=== PATIENT | male | born 1965 ===

== ENCOUNTER 2017-12-12 02:32 | Emergency (ER) | payer SELFPAY ==
[2017-12-12 02:55] VITALS: RESP 20; O2SAT 99
--- NOTE | 2017-12-12 03:05 | C.PDOC ---
History Of Present Illness 52 year old male presents to the ER via EMS for public intoxication. Patient denies any physical complaints at this time. Time Seen by Provider: 12/12/17 03:04 Chief Complaint (Nursing): Substance Abuse History Per: Patient History/Exam Limitations: no limitations Onset/Duration Of Symptoms: Hrs Current Symptoms Are (Timing): Still Present Suicide/Self Injury Attempted (Context): None Modifying Factor(s): Alcohol Involuntary Hold By: None Recent travel outside of the [place]: No Past Medical History Reviewed: Historical Data, Nursing Documentation, Vital Signs Vital Signs: Last Vital Signs Temp 98.8 F 12/12/17 02:38 Pulse 84 12/12/17 02:38 Resp 20 12/12/17 02:38 BP 176/99 H 12/12/17 02:38 Pulse Ox 99 12/12/17 06:09 Family History: States: Unknown Family Hx - Social History Hx Alcohol Use: Yes Hx Substance Use: No Review Of Systems Constitutional: Negative for: Fever, Chills Gastrointestinal: Negative for: Nausea, Vomiting, Abdominal Pain Psych: Negative for: Depression, Suicidal ideation Physical Exam - Physical Exam Appears: Non-toxic, Other (ETOH on breath, no sign of injury) Skin: Normal Color, Warm, Dry Head: Atraumatic, Normacephalic Eye(s): bilateral: Normal Inspection Oral Mucosa: Moist Chest: Symmetrical, No Tenderness Cardiovascular: Rhythm Regular Respiratory: Normal Breath Sounds, No Rales, No Rhonchi, No Wheezing Gastrointestinal/Abdominal: Soft, No Tenderness Extremity: Normal ROM, No Pedal Edema, No Calf Tenderness, No Swelling Neurological/Psych: Oriented x3, Normal Speech (Alcohol on breath) ED Course And Treatment O2 Sat by Pulse Oximetry: 99 (Room air) Pulse Ox Interpretation: Normal Progress Note: 6:05 am patient is alert and oriented, ambulating in ED with a steady gait. He is stable to be d/c home. Disposition - Disposition Disposition: HOME/ ROUTINE Disposition Time: 06:08 Condition: STABLE Additional Instructions: Follow up with PMD within 1-2 days. Return to ED if feel worse. Instructions: Alcohol Poisoning Forms: [facility] (Welsh) - Clinical Impression Clinical Impression: Alcohol intoxication - PA / PERFORMANCE IMPROVEMENT COORDINATOR / Resident Statement MD/DO has reviewed & agrees with the documentation as recorded. - Scribe Statement The provider has reviewed the documentation as recorded by the Scribe Pedro Corderoes All medical record entries made by the Scribsheree were at my direction and personally dictated by me. I have reviewed the chart and agree that the record accurately reflects my personal performance of the history, physical exam, medical decision making, and the department course for this patient. I have also personally directed, reviewed, and agree with the discharge instructions and disposition.
[2017-12-12 06:37] VITALS: BP 126/78; PULSE 90; TEMP 98.3
== END 2017-12-12 05:30 | disposition home or self-care (01) ==
LOC: C.ER 02:32
DX: F10.129 Alcohol abuse with intoxication, unspecified (principal)